=== PATIENT | male | born 1965 | race Caucasian/White ===

== ENCOUNTER → 2020-11-20 07:34 | Outpatient (REF) | payer OTHER, SELFPAY ==
--- NOTE | 2020-11-20 07:43 | CA_ITS ---
Transthoracic Echocardiogram Patient (Last, First, Middle): Matt Honeycutt J Gender: Male Date of : 1965 Age: 55 Procedure Date: 11/20/2020 Procedure Type: Transthoracic Echocardiogram Location: OP Height: 177.8 cm Weight: 88.45 kg BSA: 2.06 m2 Heart Rate: bpm BP: 96 / 70 mmHg Window Tinter: Nakia Referring MD: Domenico Gaspar [facility] Symptoms: I42.6 - Alcoholic cardiomyopathy Study Quality: Fair ECG Rhythm: Sinus Conclusions: - The left ventricular systolic function is severely decreased. The visually estimated ejection fraction is between 10-15%. - No obvious valvular pathology seen on this study. Findings Procedure Information Contrast agent, definity, is being given per protocol without apparent complications. The patient receives contrast. Left Ventricle Normal left ventricular cavity size. There is mildly increased left ventricular wall thickness. The left ventricular systolic function is severely decreased. The visually estimated ejection fraction is between 10 15%. There is severe global hypokinesis. E/E prime ratio is <8, consistent with normal filling pressures. Evidence suggests grade I (mild) diastolic dysfunction. Right Ventricle Normal right ventricular cavity size. There is low normal right ventricular systolic function. Atria Both atria are normal in size. Aortic Valve There is mild calcification of the aortic valve. There is no aortic valve stenosis. There is no aortic valve regurgitation. Mitral Valve There is mild mitral annular calcification. There is trace mitral valve regurgitation. There is no mitral valve stenosis. Pulmonic Valve The pulmonic valve was not well visualized. Tricuspid Valve Normal tricuspid valve structure. There is trace tricuspid valve regurgitation. The pulmonary artery systolic pressure is normal. Great Vessels The aortic annulus, sinuses of valsalva, and asc aorta are normal in size. Venous The inferior vena cava is normal in size and collapses greater than 50% with inspiration. Pericardium/Pleural There is no evidence of pericardial effusion. Prior Study Comparison No significant change compared to prior study dated: 07/26/2016. Recommendations, Care & Conclusions No obvious valvular pathology seen on this study. Measurements M-Mode Liner Measurements Normals - Women/Men AOV Cusps: 2.20 1.5-2.6 cm/m2 2D Linear Measurements IVSd: 1.17 0.6-0.9/0.6-1.0 cm LVIDd: 5.97 3.9-5.3/4.2-5.9 cm LVIDd Index: 2.90 2.4-3.2/2.2-3.1 cm/m2 LVIDs: 4.38 2.0-3.6 cm LVPWd: 1.08 0.7-1.1 cm Ao Root: 3.40 2.1-3.5 cm LA Diam: 3.70 2.7-3.8/3.0-4.0 cm LAIDs Index: 1.80 1.5-2.3 cm/m2 LV Mass: 356.34 67-162/88-224 g LV Mass Index: 172.98 43-95/49-115 g/m2 LVOT Diam: 2.30 3.0+(-)1.3 cm 2D Systolic Function EF 4C: 27.90 >55% EF 2C: 39.00 >55% Mitral Valve MV Pk E: 0.53 MV PK A: 0.78 MV Decel Time: 216.00 E/A: 0.70 E'Lateral: 9.03 E'Medial: 4.68 E/E' Med: 11.20 E/E' Lat: 5.80 PHT: 63.00 MVA PHT: 3.49 Decel Cass: 2.43 Aortic Valve AoV Pk Kevin: 1.28 AoV Mn Kevin: 0.98 AoV VTI: 0.24 AoV Pk Grad: 7.00 Aov Mn Grad: 4.00 JOSE F Cont.VTI: 2.62 LVOT LVOT Pk Kevin: 0.88 LVOT Mn Kevin: 0.67 LVOT VTI: 0.15 LVOT Pk Grad: 3.00 LVOT Mn Grad: 2.00 LVOT Diam: 2.30 LVOT Area: 4.15 Diastolic Function MV Pk E: 0.53 MV Pk A: 0.78 E/A: 0.70 E'Medial: 4.68 E/E' Med: 11.20 E' Laterial: 9.03 E/E' Lat: 5.80 Tricuspid Valve TR Pk Kevin: 1.83 TR Pk Grad: 13.00 RA Press: 3.00 RVSP: 16.00 Great Vessels Aorta Ao Root-2D: 3.40 2.0-3.7 cm Ao Asc: 3.20 2.1-3.4 cm Ao Arch: 2.90 Pulmonary Valve PV Pk Kevin: 1.25 Peak PV Grad: 6.00 Updated in Other Vendor System with Status of Final Elliot Veliz MD electronically signed on 11/21/2020 2:44:19 PM with status of Final
== END ==
LOC: HO.CARD 07:34
PROVIDERS: PCP Nurse Practitioner Family; Visit Provider Nurse Practitioner Family
DX: I42.6 Alcoholic cardiomyopathy (principal)
CPT/HCPCS: 93306; Q9957

== ENCOUNTER → 2020-12-03 11:56 | Outpatient (BNVA) | payer OTHER, SELFPAY | PROVIDERS: PCP Nurse Practitioner Family; Referring Provider Nurse Practitioner Family; Visit Provider Physician Assistant | DX: I42.9 Cardiomyopathy, unspecified (principal); I44.7 Left bundle-branch block, unspecified; G47.33 Obstructive sleep apnea (adult) (pediatric); F10.10 Alcohol abuse, uncomplicated; Z12.11 Encounter for screening for malignant neoplasm of colon; Z78.9 Other specified health status | CPT/HCPCS: 99202 ==

== ENCOUNTER → 2021-02-03 09:55 | Outpatient (BNVA) | payer OTHER, SELFPAY | PROVIDERS: PCP Nurse Practitioner Family; Referring Provider Nurse Practitioner Family; Visit Provider Physician Assistant ==

== ENCOUNTER 2022-08-09 14:27 | Outpatient (REF) | payer OTHER, SELFPAY ==
--- NOTE | ~2022-08-09 | XR_ITS ---
EXAMINATION: XR CHEST CLINICAL INFORMATION: Alcoholic cardiomyopathy COMPARISON: 01/08/2020 TECHNIQUE: 2 views of the chest were obtained. FINDINGS: The lungs are well expanded. There is no focal consolidation, edema, or effusion. No pneumothorax. The cardiomediastinal silhouette is prominently enlarged. This appears increased from prior. No acute osseous abnormality. XR/XR chest 2V IMPRESSION: No acute pulmonary finding. Prominent cardiac silhouette which appears increased from prior. This could be secondary to cardiomegaly or pericardial effusion.
[2022-08-09 16:32] LABS: Hematocrit 39.3 % (42.0-52.0); Mean Corpuscular HGB Conc 33.1 g/dl (31.0-36.0); Mean Corpuscular Hemoglobin 32.5 pg (27.0-33.0); Mean Corpuscular Volume 98.3 fL (80.0-98.0); Platelet Count 324 X10*3/uL (160-400); Red Cell Distribution Width 12.7 % (11.0-16.0); White Blood Count 9.9 X10*3/uL (4.8-10.8)
[2022-08-09 17:31] LABS: B Type Natriuretic Peptide 110 pg/mL (<100)
[2022-08-09 17:36] LABS: Alanine Aminotransferase 13 U/L (0-40); Albumin Level 3.3 g/dL (3.5-5.0); Alkaline Phosphatase 94 U/L (39-117); Anion Gap 12 (12-20); Aspartate Amino Transferase 18 U/L (5-37); Bilirubin Direct < 0.2 mg/dL (0.0-0.5); Bilirubin Total 0.3 mg/dL (0.0-1.0); Blood Urea Nitrogen 17 mg/dL (9-16); Carbon Dioxide 32 mmol/L (22-29); Chloride 102 mmol/L (96-108); Cholesterol 130 mg/dL; Estimated Glomerular Filt Rate > 60; Glucose Random 90 mg/dL (60-115); HDL Cholesterol 38 mg/dL; LDL Cholesterol Calculated 79 mg/dl; Potassium 4.7 mmol/L (3.3-5.1); Sodium 141 mmol/L (135-145); Total Protein 6.8 g/dL (6.5-8.0); Triglycerides 67 mg/dL
[2022-08-09 17:46] LABS: Thyroid Stimulating Hormone 2.55 uIU/mL (0.32-4.0)
== END 2022-08-09 14:28 | disposition home or self-care (01) ==
LOC: HO.HMGCX 14:27
PROVIDERS: PCP Nurse Practitioner Family; Visit Provider Internal Medicine
DX: I42.6 Alcoholic cardiomyopathy (principal)
CPT/HCPCS: 36415; 71046; 80048; 80061; 80076; 83880; 84443; 85027

== ENCOUNTER 2022-09-01 08:49 | Outpatient (REF) | payer OTHER, SELFPAY ==
--- NOTE | ~2022-09-01 | US_ITS ---
EXAMINATION: US VENOUS ULTRASOUND WITH DOPPLER LOWER EXTREMITY, BILATERAL CLINICAL INFORMATION: Swelling mass lump lower limb COMPARISON: None available. TECHNIQUE: Ultrasound of the deep veins is performed from the hip to the calf with compression sonography and color and pulse Doppler assessment. Spectral analysis with color-flow imaging is performed. FINDINGS: RIGHT: There is normal venous compression and respiratory variation and augmented flow. The visualized common femoral vein, superficial femoral vein, profunda femoral vein, popliteal vein, and the trifurcation region shows no evidence of deep venous thrombosis. There is no significant popliteal fossa cyst. LEFT: There is normal venous compression and respiratory variation and augmented flow. The visualized common femoral vein, superficial femoral vein, profunda femoral vein, popliteal vein, and the trifurcation region shows no evidence of deep venous thrombosis. There is no significant popliteal fossa cyst. If the patient's symptoms persist, followup ultrasound in 5 days 7 days might be of value to exclude proximal propagation from a non-visualized calf vein. US/US venous duplex LE BI IMPRESSION: No DVT demonstrated in the bilateral lower extremity.
[2022-09-01 11:14] LABS: MANUAL DIFF FLAG NO
[2022-09-01 11:19] LABS: Basophils Absolute Auto 0.1 X10*3/uL (0.0-0.2); Basophils Percent Auto 0.5 % (0-2); Eosinophils Absolute Auto 0.1 X10*3/uL (0.0-0.4); Eosinophils Percent Auto 1.2 % (0-4); Hematocrit 41.1 % (42.0-52.0); Hemoglobin 13.9 g/dl (14.0-18.0); Imm Gran Abs Auto 0.04 X10*3/uL (0.00-0.03); Imm Gran Pct Auto 0.4 % (0.0-0.4); Lymphocytes Absolute Auto 2.9 X10*3/uL (1.2-4.9); Mean Corpuscular HGB Conc 33.8 g/dl (31.0-36.0); Mean Corpuscular Hemoglobin 31.8 pg (27.0-33.0); Mean Corpuscular Volume 94.1 fL (80.0-98.0); Mean Platelet Volume 9.9 fL (9.4-12.4); Monocytes Absolute Auto 0.7 X10*3/uL (0.1-1.2); Monocytes Percent Auto 6.7 % (2-11); Neutrophils Absolute Auto 5.9 x10*3/uL (2.0-8.3); Neutrophils Percent Auto 61.2 % (45-73); Platelet Count 188 X10*3/uL (160-400); Red Blood Count 4.37 X10*6/uL (4.60-5.80); White Blood Count 9.6 X10*3/uL (4.8-10.8)
[2022-09-01 11:30] LABS: Appearance Urine Clear; Color Urine Yellow; Glucose Urine UA Negative (Negative); Leukocyte Esterase Urine Negative (Negative); Nitrite Urine Negative (Negative); PH 5.5 (5.0-9.0); Urine Blood Negative (Negative); Urine Ketones Trace mg/dL (Negative); Urine Protein Negative (Neg-Trace)
[2022-09-01 11:37] LABS: D Dimer High Sensitivity 247 NG/ML
[2022-09-01 11:55] LABS: B Type Natriuretic Peptide 34 pg/mL (<100)
[2022-09-01 12:20] LABS: Alanine Aminotransferase 12 U/L (0-40); Albumin Level 4.1 g/dL (3.5-5.0); Alkaline Phosphatase 102 U/L (39-117); Anion Gap 18 (12-20); Aspartate Amino Transferase 22 U/L (5-37); Bilirubin Total 0.5 mg/dL (0.0-1.0); Blood Urea Nitrogen 35 mg/dL (9-16); Carbon Dioxide 19 mmol/L (22-29); Chloride 109 mmol/L (96-108); Estimated Glomerular Filt Rate > 60; Glucose Random 92 mg/dL (60-115); Potassium 4.8 mmol/L (3.3-5.1); Sodium 141 mmol/L (135-145); Total Protein 7.4 g/dL (6.5-8.0)
[2022-09-01 12:27] LABS: Prostate Specific Antigen Scr 2.65 ng/mL (<0.05-4.0); TSH reflex Free T4 0.95 uIU/mL (0.32-4.0)
== END 2022-09-01 08:50 | disposition home or self-care (01) ==
LOC: HO.HMGCLDS 08:49
PROVIDERS: PCP Nurse Practitioner Family; Visit Provider Nurse Practitioner Family
DX: Z12.5 Encounter for screening for malignant neoplasm of prostate (principal); I10 Essential (primary) hypertension; R22.43 Localized swelling, mass and lump, lower limb, bilateral; M79.661 Pain in right lower leg; M79.662 Pain in left lower leg
CPT/HCPCS: 36415; 80053; 81003; 83880; 84153; 84443; 85025; 85379; 93970

== ENCOUNTER 2022-09-02 11:50 | Outpatient (REF) | payer OTHER, SELFPAY ==
--- NOTE | ~2022-09-02 | CT_ITS ---
EXAMINATION: CT ANGIOGRAM OF THE CHEST WITH AND WITHOUT CONTRAST (CT PULMONARY ANGIOGRAM FOR PE) CLINICAL INFORMATION: Other specified abnormal findings of blood chemistry COMPARISON: Chest radiographs dated 08/09/2022. TECHNIQUE: Prior to contrast administration, noncontrast localization images were obtained. Subsequently, multidetector volumetric imaging was performed from the thoracic inlet to below the diaphragms following the administration of 80 mL Omnipaque 350 intravenous contrast. No contrast reaction reported Sagittal, coronal, and MIP oblique sagittal reformatted images were obtained on the CT workstation, uploaded to PACS, and reviewed. This CT examination was performed using dose optimization techniques as appropriate, variously including the following: *Automated exposure control *Adjustment of mA and/or kV according to patient size (this includes techniques or standardized protocols for targeted exams where dose is matched to indication/reason for exam; i.e. extremities or head) *Use of iterative reconstruction technique Total exam dose-length product 168 mGy-cm FINDINGS: QUALITY OF STUDY/CONTRAST BOLUS: Satisfactory. PULMONARY ARTERIES: No pulmonary emboli. THORACIC AORTA: No aneurysm. LUNGS/PLEURA/AIRWAYS: Mild linear atelectasis/scarring is seen in the lower lobes bilaterally. No suspicious pulmonary nodules. No pleural effusions. The airways are patent. MEDIASTINUM: Normal heart size. No pericardial effusion. No hilar or mediastinal lymphadenopathy. No evidence of septal bowing or right heart strain. CORONARY ARTERY CALCIFICATION: None visualized on this study. CHEST WALL/AXILLA: No axillary or internal mammary lymphadenopathy. Mild bilateral gynecomastia. OSSEOUS STRUCTURES: Mild thoracic dextro scoliosis is seen with mild multilevel degenerative changes. No suspicious abnormality. UPPER ABDOMEN: Diffuse decreased hepatic attenuation. No reflux of contrast into the hepatic veins to suggest elevated right heart pressures. CT/CT angio chest PE protocol IMPRESSION: 1. No evidence for pulmonary embolism. 2. No acute cardiopulmonary process. 3. Mild bilateral gynecomastia. 4. Hepatic steatosis. VTE: Negative.
[2022-09-02] MEDS: iohexoL 350 MG/ML 100 ML INFUS..BTL 65 ML IV (12:29)
== END 2022-09-02 11:51 | disposition home or self-care (01) ==
LOC: HO.CT 11:50
PROVIDERS: PCP Nurse Practitioner Family; Visit Provider Nurse Practitioner Family
DX: R79.89 Other specified abnormal findings of blood chemistry (principal)
CPT/HCPCS: 71275; Q9967

== ENCOUNTER → 2022-09-09 14:46 | Outpatient (REF) | payer OTHER, SELFPAY ==
--- NOTE | 2022-09-09 14:49 | CA_ITS ---
Transthoracic Echocardiogram Patient (Last, First, Middle): Matt Honeycutt J Gender: Male Date of : 1965 Age: 57 Procedure Date: 09/09/2022 Procedure Type: Transthoracic Echocardiogram Location: OP Height: 177.8 cm Weight: 111.13 kg BSA: 2.28 m2 Heart Rate: 65 bpm BP: 118 / 74 mmHg Executive Services Administrator: SB Referring MD: Domenico Gaspar [facility] Symptoms: R22.43 - Localized swelling, mass and lump, lower limb, bilateral Study Quality: Fair ECG Rhythm: Sinus Conclusions: - Normal left ventricular cavity size. There is mildly increased left ventricular wall thickness. The left ventricular systolic function is borderline reduced. The visually estimated ejection fraction is between 45-50%. - Mildly increased right ventricular cavity size. There is mildly decreased right ventricular systolic function. Findings Procedure Information Contrast agent, definity, is being given per protocol without apparent complications. The quality of the study was technically difficult. The study quality is limited by patients body habitus. Left Ventricle Normal left ventricular cavity size. There is mildly increased left ventricular wall thickness. The left ventricular systolic function is borderline reduced. The visually estimated ejection fraction is between 45 50%. There is no evidence of regional wall motion abnormalities. There is paradoxical septal motion consistent with a left bundle branch block. Diastolic function is indeterminate on the basis of available data. Right Ventricle Mildly increased right ventricular cavity size. There is mildly decreased right ventricular systolic function. Atria The left atrium is normal in size. Aortic Valve The aortic valve structure and function is likely normal. There is no aortic valve stenosis. There is no aortic valve regurgitation. Mitral Valve Normal mitral valve structure and function. There is no mitral valve regurgitation. There is no mitral valve stenosis. Pulmonic Valve The pulmonic valve is likely normal. Tricuspid Valve Normal tricuspid valve structure and function. Tricuspid regurgitation envelope is inadequate for calculation of right ventricular systolic pressure. Normal right atrial pressure. Great Vessels All visible segments of the aorta are normal in size. The visualized portions of the pulmonary artery and branches are normal. Venous The inferior vena cava is normal in size and collapses greater than 50% with inspiration. Pericardium/Pleural There is no evidence of pericardial effusion. Prior Study Comparison Changes noted compared to prior study dated: 11/20/2020. EF 45 to 50%, mild RV dysfunction. Measurements 2D Linear Measurements IVSd: 1.43 0.6-0.9/0.6-1.0 cm LVIDd: 5.24 3.9-5.3/4.2-5.9 cm LVIDd Index: 2.30 2.4-3.2/2.2-3.1 cm/m2 LVPWd: 1.14 0.7-1.1 cm LA Diam: 4.10 2.7-3.8/3.0-4.0 cm LAIDs Index: 1.80 1.5-2.3 cm/m2 LV Mass: 345.80 67-162/88-224 g LV Mass Index: 151.67 43-95/49-115 g/m2 LVOT Diam: 2.20 3.0+(-)1.3 cm 2D Systolic Function EF 4C: 33.40 >55% EF 2C: 50.60 >55% EF BiP: 41.40 >55% Mitral Valve MV Pk E: 0.61 MV PK A: 0.54 MV Decel Time: 187.00 E/A: 1.10 E'Lateral: 8.35 E'Medial: 5.51 E/E' Med: 11.00 E/E' Lat: 7.30 PHT: 55.00 MVA PHT: 4.00 Decel [place]: 3.26 Aortic Valve AoV Pk Kevin: 1.43 AoV Pk Grad: 8.00 JOSE F: 2.91 LVOT LVOT Pk Kevin: 1.01 LVOT Mn Kevin: 0.67 LVOT VTI: 0.20 LVOT Pk Grad: 4.00 LVOT Mn Grad: 3.00 LVOT Diam: 2.20 LVOT Area: 3.80 Diastolic Function MV Pk E: 0.61 MV Pk A: 0.54 E/A: 1.10 E'Medial: 5.51 E/E' Med: 11.00 E' Laterial: 8.35 E/E' Lat: 7.30 Right Ventricle TVS' Kevin: 9.95 Tricuspid Valve RA Press: 3.00 Great Vessels Aorta Ao Asc: 3.20 2.1-3.4 cm Ao Arch: 2.80 Ao Desc: 2.70 Pulmonary Valve PV Pk Kevin: 1.00 Peak PV Grad: 4.00 Updated in Other Vendor System with Status of Final Walter Chu MD electronically signed on 09/12/2022 10:50:25 PM with status of Final
== END ==
LOC: HO.CARD 14:46
PROVIDERS: Referring Provider Internal Medicine; Visit Provider Nurse Practitioner Family
DX: R22.43 Localized swelling, mass and lump, lower limb, bilateral (principal)
CPT/HCPCS: 93306; Q9957

== ENCOUNTER → 2022-10-26 12:27 | Outpatient (BNVA) | payer OTHER, SELFPAY | PROVIDERS: PCP Nurse Practitioner Family; Referring Provider Nurse Practitioner Family; Visit Provider Internal Medicine | DX: I42.9 Cardiomyopathy, unspecified (principal); I44.7 Left bundle-branch block, unspecified; F10.10 Alcohol abuse, uncomplicated | CPT/HCPCS: 99212 ==

== ENCOUNTER 2022-12-19 09:09 | Outpatient (REF) | payer OTHER, SELFPAY ==
[2022-12-19 11:26] LABS: MANUAL DIFF FLAG NO
[2022-12-19 12:07] LABS: Basophils Percent Auto 0.4 % (0-2); Eosinophils Absolute Auto 0.2 X10*3/uL (0.0-0.4); Eosinophils Percent Auto 2.2 % (0-4); Hematocrit 42.2 % (42.0-52.0); Hemoglobin 14.5 g/dl (14.0-18.0); Imm Gran Abs Auto 0.05 X10*3/uL (0.00-0.03); Imm Gran Pct Auto 0.5 % (0.0-0.4); Immature Retic Fraction 14.9 % (2.3-13.4); Lymphocytes Absolute Auto 3.4 X10*3/uL (1.2-4.9); Lymphocytes Percent Auto 32.4 % (20-40); Mean Corpuscular HGB Conc 34.4 g/dl (31.0-36.0); Mean Corpuscular Hemoglobin 32.3 pg (27.0-33.0); Mean Platelet Volume 9.8 fL (9.4-12.4); Monocytes Absolute Auto 0.6 X10*3/uL (0.1-1.2); Monocytes Percent Auto 6.2 % (2-11); Neutrophils Percent Auto 58.3 % (45-73); Platelet Count 163 X10*3/uL (160-400); Red Blood Count 4.49 X10*6/uL (4.60-5.80); Red Cell Distribution Width 11.9 % (11.0-16.0); Retic HGB Equivalent 41.2 pg (30.0-35.0); Reticulocyte Percent 2.1 % (0.5-1.8); Reticulocytes Absolute 0.096 X10*6/uL (0.026-0.095); White Blood Count 10.3 X10*3/uL (4.8-10.8)
[2022-12-19 12:49] LABS: B Type Natriuretic Peptide 26 pg/mL (<100)
[2022-12-19 13:10] LABS: Alanine Aminotransferase 40 U/L (0-40); Alkaline Phosphatase 117 U/L (39-117); Anion Gap 14 (12-20); Aspartate Amino Transferase 45 U/L (5-37); Bilirubin Total 0.5 mg/dL (0.0-1.0); Blood Urea Nitrogen 23 mg/dL (9-16); Calcium 9.3 mg/dL (8.4-10.2); Carbon Dioxide 27 mmol/L (22-29); Chloride 106 mmol/L (96-108); Estimated Glomerular Filt Rate > 60; Glucose Random 100 mg/dL (60-115); Iron 72 mcg/dL (45-160); Percent Iron Saturation 25 % (15-50); Potassium 3.5 mmol/L (3.3-5.1); Sodium 143 mmol/L (135-145); Total Iron Binding Capacity 283 mcg/dL (228-428); Total Protein 7.2 g/dL (6.5-8.0); Unsaturated Iron Binding 211 ug/dL
[2022-12-19 13:11] LABS: Ferritin 296 ng/mL (20-250)
[2022-12-19 13:21] LABS: Folate 16.1 ng/mL (> or = 4.0); Vitamin B12 458 pg/mL (200-900)
== END 2022-12-19 09:10 | disposition home or self-care (01) ==
LOC: HO.HMGCLDS 09:09
PROVIDERS: Absent Provider Internal Medicine; PCP Nurse Practitioner Family; Visit Provider Nurse Practitioner Family
DX: F10.10 Alcohol abuse, uncomplicated (principal); I42.9 Cardiomyopathy, unspecified; R22.43 Localized swelling, mass and lump, lower limb, bilateral
CPT/HCPCS: 36415; 80053; 82607; 82728; 82746; 83540; 83880; 85025; 85045

== ENCOUNTER 2023-02-17 15:05 | Outpatient (AMB) | payer OTHER, SELFPAY ==
--- NOTE | 2023-02-17 15:36 | AM.OFFWIN_ITS ---
Intake Vital Signs 02/17/23 15:47 Height 5 ft 10 in Weight 239 lb BMI 34.3 BP 138/78 Blood Pressure Location Rt brachial Position Sitting Pulse 80 Pulse Source Pulse Oximeter Temp 97.9 F Temp Source Temporal Artery Scan Pulse Oximetry (%) 96 Intake Visit Reasons: EST/feet and ankle sweeling Intake Note: pt is here for c/o swelling of ankle and feet Patient Tobacco Use Status: Never used Tobacco Allergies No Known Allergies Allergy (Unknown, Verified 02/17/23 15:47) Do you need a note to return to daycare/school/sports/work: Yes HPI HPI Comments History of Present Illness Details This is a 57-year-old male who presents to the office today for sick visit. Patient complaining of bilateral lower extremity edema x3 days. Patient denies any new medications, diet changes, or lifestyle changes. He states he was in his usual state of health until he started to develop lower extremity edema bilaterally about 3 days ago. Patient is otherwise feeling well without chest pain, shortness of breath, abdominal pain, nausea/vomiting/diarrhea, fever/chills, abdominal distention, orthopnea/paroxysmal nocturnal dyspnea, or weight gain. Patient states this has happened to him in the past. He was put on oral furosemide, which seemed to help. Patient has a cardiac workup scheduled for April 12. He denies any recent travel, recent surgeries, recent immobilization, or trauma/injury to the area. [facility] Medical History (Updated 11/14/22 @ 18:04 by PILI Bai) Gynecomastia Insomnia VIC (obstructive sleep apnea) Alcoholic cardiomyopathy Hypertension Hyperlipidemia Surgical History No pertinent past surgical history Family History Mother No problems noted. Social History Household Members Other:: Lives with father Housing: House Alcohol intake: current Alcohol intake frequency: does not drink Patient Tobacco Use Status: Never used Tobacco e-Cigarette/Vaping Use: Never Used Current occupational status: unemployed Cognitive needs: No Hearing needs: No Vision needs: No Review of Systems Const All systems reviewed & are unremarkable except as noted in HPI and below Reports no additional complaints Eyes Reports no additional complaints ENT Reports no additional complaints Card Reports no additional complaints Resp Reports no additional complaints GI Reports no additional complaints Reports no additional complaints Musc Reports no additional complaints Skin/Breast Reports system reviewed and no additional complaints, except as documented Neuro Reports no additional complaints Psych Reports no additional complaints Endo Reports no additional complaints Arturo/Lymph Reports no additional complaints Aller/Immun Reports no additional complaints Physical Exam Vital Signs: Last Vital Signs Temp 97.9 F 02/17/23 15:47 Pulse 80 02/17/23 15:47 BP 138/78 02/17/23 15:47 Pulse Ox 96 02/17/23 15:47 BMI result Body Mass Index 34.3 Const General: cooperative, healthy appearing, no acute distress and well developed Orientation/consciousness: patient oriented x3 HEENT Head: Yes normal to inspection Ears: hearing grossly normal bilaterally General nose exam: Normal external nose present Face and sinus: Yes normal facial exam Mouth: Normal oral and palatal mucosa present Eyes General: appearance normal, both eyes and all related structures Pupils: Equal, round and reactive pupils present EOM: EOMs intact bilaterally Resp Effort & Inspection: normal respiratory effort and no respiratory distress Auscultation: clear to auscultation bilaterally Cardio Jugular venous distension: no JVD Rate: regular rate Rhythm: regular rhythm Heart sounds: no gallops, no murmurs and no rubs Peripheral pulses: Peripheral pulses 2+ throughout GI Inspection: No distended Palpation (GI): Soft to palpation and nontender Auscultation: normal bowel sounds Skin General skin exam: no rashes or lesions noted Neuro General: patient oriented x3 Cranial nerves: Yes CN's II-XII intact bilaterally and Yes Equal, round and reactive pupils present Gait exam (Neuro): Normal gait present Motor exam (neuro): 5/5 motor strength present throughout Extrem Other: Pitting edema of bilateral lower extremities, left greater than right. General: Yes normal to inspection and Yes full ROM Right lower extremity: edema Left lower extremity: edema Psych Appearance: grossly normal Mental Status: mental status grossly normal Assessment & Plan Assessment & Plan (1) Bilateral lower extremity edema: Code(s): R60.0 - Localized edema Plan: This is a 57-year-old male who presents to the office today complaining of bilateral lower extremity edema x3 days. On physical examination, he has bilateral lower extremity edema (left greater than right) but his physical exam is otherwise benign without JVD, crackles, or abdominal distention. Differential diagnosis includes peripheral/dependent edema versus heart failure versus liver disease versus kidney disease versus venous insufficiency versus less likely DVT given no recent travel/surgery/immobilization and no history of blood clots. My recommendation was to obtain labs including CBC, CMP, and BNP as well as an ultrasound of bilateral lower extremity duplex ultrasound to rule out DVT. Unfortunately, labs and ultrasound are no longer available at the walk-in clinic at this time. I encouraged the patient to go to the emergency room to rule out a deep vein thrombosis as well as obtain labs. Patient declines at this time. Patient was educated on the risks of DVT including but not limited to pulmonary embolism, debility, and . The patient is alert and oriented x 4 and in my opinion he has the competence to make his own medical decisions. Patient agrees to follow-up here in 3 days to obtain labs and ultrasound, which have been ordered. In the meantime, I have sent patient home on p.o. furosemide 20 mg daily x5 days. Patient was encouraged to proceed directly to the emergency room if he were to develop worsening swelling, color changes of his extremities, or shortness of breath. Patient has a cardiology workup scheduled for April 12 and I strongly encouraged him to keep this appointment. Patient verbalizes understanding and he is in agreement with the plan. Patient is comfortable with being discharged home at this time. Orders: Orders Complete Blood Count Auto Diff Today M79.89 - Other specified soft tissue disorders US venous duplex LE BI Today M79.89 - Other specified soft tissue disorders Comprehensive Met. Panel Today M79.89 - Other specified soft tissue disorders B Type Natriuretic Peptide Today M79.89 - Other specified soft tissue disorders Medications: New furosemide 20 mg PO DAILY 5 tabs 0RF Coding Level of Care Code Est Pt Level 3 (45896) Diagnoses Bilateral lower extremity edema R60.0
[2023-02-17 15:47] VITALS: BP 138/78; PULSE 80; TEMP 36.6; O2SAT 96; BMI 34.3
== END 2023-02-17 16:18 | disposition home or self-care (01) ==
PROVIDERS: PCP Nurse Practitioner Family; Visit Provider Physician Assistant Medical
DX: R60.0 Localized edema (principal)
CPT/HCPCS: 99213

== ENCOUNTER 2023-02-20 09:35 | Outpatient (REF) | payer OTHER, SELFPAY ==
[2023-02-20 11:10] LABS: MANUAL DIFF FLAG NO
[2023-02-20 11:29] LABS: Basophils Percent Auto 0.6 % (0-2); Eosinophils Absolute Auto 0.2 X10*3/uL (0.0-0.4); Eosinophils Percent Auto 2.2 % (0-4); Hematocrit 39.7 % (42.0-52.0); Hemoglobin 13.4 g/dl (14.0-18.0); Imm Gran Abs Auto 0.02 X10*3/uL (0.00-0.03); Imm Gran Pct Auto 0.3 % (0.0-0.4); Lymphocytes Percent Auto 27.3 % (20-40); Mean Corpuscular HGB Conc 33.8 g/dl (31.0-36.0); Mean Corpuscular Hemoglobin 33.4 pg (27.0-33.0); Mean Platelet Volume 10.1 fL (9.4-12.4); Monocytes Absolute Auto 0.7 X10*3/uL (0.1-1.2); Monocytes Percent Auto 9.3 % (2-11); Neutrophils Absolute Auto 4.3 x10*3/uL (2.0-8.3); Neutrophils Percent Auto 60.3 % (45-73); Platelet Count 173 X10*3/uL (160-400); Red Blood Count 4.01 X10*6/uL (4.60-5.80); Red Cell Distribution Width 13.9 % (11.0-16.0); White Blood Count 7.2 X10*3/uL (4.8-10.8)
[2023-02-20 11:48] LABS: B Type Natriuretic Peptide 376 pg/mL (<100)
[2023-02-20 12:54] LABS: Alanine Aminotransferase 18 U/L (0-40); Albumin Level 3.8 g/dL (3.5-5.0); Alkaline Phosphatase 86 U/L (39-117); Anion Gap 11 (12-20); Aspartate Amino Transferase 26 U/L (5-37); Bilirubin Total 0.4 mg/dL (0.0-1.0); Blood Urea Nitrogen 15 mg/dL (9-16); Calcium 8.8 mg/dL (8.4-10.2); Carbon Dioxide 25 mmol/L (22-29); Chloride 110 mmol/L (96-108); Estimated Glomerular Filt Rate > 60; Glucose Random 98 mg/dL (60-115); Potassium 3.8 mmol/L (3.3-5.1); Sodium 142 mmol/L (135-145); Total Protein 6.6 g/dL (6.5-8.0)
== END 2023-02-20 09:36 | disposition home or self-care (01) ==
LOC: HO.HMGCLDS 09:35
PROVIDERS: PCP Nurse Practitioner Family; Visit Provider Physician Assistant Medical
DX: M79.89 Other specified soft tissue disorders (principal)
CPT/HCPCS: 36415; 80053; 83880; 85025

== ENCOUNTER 2023-02-20 10:54 | Outpatient (REF) | payer OTHER, SELFPAY ==
--- NOTE | ~2023-02-20 | US_ITS ---
EXAMINATION: US VENOUS ULTRASOUND WITH DOPPLER LOWER EXTREMITY, BILATERAL CLINICAL INFORMATION: Bilateral lower extremity swelling. COMPARISON: Venous ultrasound 09/01/2022. TECHNIQUE: Ultrasound of the deep veins is performed from the hip to the calf with compression sonography and color and pulse Doppler assessment. Spectral analysis with color-flow imaging is performed. FINDINGS: RIGHT: There is normal venous compression and respiratory variation and augmented flow. The visualized common femoral vein, superficial femoral vein, profunda femoral vein, popliteal vein, and the trifurcation region shows no evidence of deep venous thrombosis. There is no significant popliteal fossa cyst. LEFT: There is normal venous compression and respiratory variation and augmented flow. The visualized common femoral vein, superficial femoral vein, profunda femoral vein, popliteal vein, and the trifurcation region shows no evidence of deep venous thrombosis. There is no significant popliteal fossa cyst. US/US venous duplex LE BI IMPRESSION: No DVT demonstrated in the bilateral lower extremities.
== END 2023-02-20 10:55 | disposition home or self-care (01) ==
LOC: HO.HMGCX 10:54
PROVIDERS: PCP Nurse Practitioner Family; Visit Provider Physician Assistant Medical
DX: R60.0 Localized edema (principal)
CPT/HCPCS: 93970

== ENCOUNTER 2023-04-03 06:40 | Outpatient (REF) | payer OTHER, SELFPAY ==
[2023-04-03 12:06] LABS: MANUAL DIFF FLAG NO
[2023-04-03 12:11] LABS: Basophils Absolute Auto 0.1 X10*3/uL (0.0-0.2); Basophils Percent Auto 0.8 % (0-2); Eosinophils Absolute Auto 0.1 X10*3/uL (0.0-0.4); Eosinophils Percent Auto 1.5 % (0-4); Hematocrit 40.8 % (42.0-52.0); Hemoglobin 13.5 g/dl (14.0-18.0); Imm Gran Abs Auto 0.03 X10*3/uL (0.00-0.03); Imm Gran Pct Auto 0.5 % (0.0-0.4); Lymphocytes Absolute Auto 2.5 X10*3/uL (1.2-4.9); Lymphocytes Percent Auto 38.5 % (20-40); Mean Corpuscular HGB Conc 33.1 g/dl (31.0-36.0); Mean Corpuscular Hemoglobin 33.1 pg (27.0-33.0); Mean Platelet Volume 9.8 fL (9.4-12.4); Monocytes Absolute Auto 0.8 X10*3/uL (0.1-1.2); Monocytes Percent Auto 12.9 % (2-11); Neutrophils Percent Auto 45.8 % (45-73); Platelet Count 217 X10*3/uL (160-400); Red Blood Count 4.08 X10*6/uL (4.60-5.80); Red Cell Distribution Width 12.1 % (11.0-16.0); White Blood Count 6.5 X10*3/uL (4.8-10.8)
[2023-04-03 12:57] LABS: Alanine Aminotransferase 67 U/L (0-40); Alkaline Phosphatase 84 U/L (39-117); Anion Gap 14 (12-20); Aspartate Amino Transferase 53 U/L (5-37); Bilirubin Total 0.3 mg/dL (0.0-1.0); Blood Urea Nitrogen 14 mg/dL (9-16); Calcium 8.9 mg/dL (8.4-10.2); Carbon Dioxide 23 mmol/L (22-29); Chloride 109 mmol/L (96-108); Cholesterol 133 mg/dL (<200); Estimated Glomerular Filt Rate > 60; Glucose Fasting 95 mg/dL (60-99); HDL Cholesterol 51 mg/dL (>40); LDL Cholesterol Calculated 75 mg/dL (<100); Potassium 3.5 mmol/L (3.3-5.1); Sodium 142 mmol/L (135-145); TSH reflex Free T4 1.96 uIU/mL (0.32-4.0); Total Protein 7.2 g/dL (6.5-8.0); Triglycerides 39 mg/dL (<150)
== END 2023-04-03 06:41 | disposition home or self-care (01) ==
LOC: HO.HMGCLDS 06:40
PROVIDERS: PCP Nurse Practitioner Family; Visit Provider Internal Medicine
DX: I10 Essential (primary) hypertension (principal)
CPT/HCPCS: 36415; 80053; 80061; 84443; 85025

== ENCOUNTER 2023-05-12 09:13 | Outpatient (AMB) | payer OTHER, SELFPAY ==
[2023-05-12 10:33] VITALS: BP 130/70; PULSE 66; TEMP 36.4; O2SAT 97; BMI 35.6
--- NOTE | 2023-05-12 10:33 | AM.OFFWIN_ITS ---
Intake Vital Signs 05/12/23 10:33 Height 5 ft 10 in Weight 112.491 kg BMI 35.6 BP 130/70 Blood Pressure Location Lt brachial Position Sitting Pulse 66 Pulse Source Pulse Oximeter Temp 97.6 F Temp Source Temporal Artery Scan Pulse Oximetry (%) 97 Oxygen Delivery Method Room Air Intake Visit Reasons: EP, Swelling to both legs/feet Intake Note: pt is here today for swelling in both leg/feet started monday Patient Tobacco Use Status: Never used Tobacco Allergies No Known Allergies Allergy (Unknown, Verified 05/12/23 10:48) Do you need a note to return to daycare/school/sports/work: No HPI HPI Comments History of Present Illness Details This is a 57-year-old male presenting to the clinic for sick visit, and medication refill, patient reporting he is having significant lower extremity edema left worse than right, he reports that he has to be on a water pill howev er he ran out a while ago and has not been taking as prescribed. Reports some left calf pain. The symptoms have been worsening for the past few weeks. Denies chest pain, shortness of breath, numbness, tingling, fevers, chills, blunt trauma. Patient not on blood thinner On physical exam there is 3+ nonpitting edema to the left lower extremity from the knee down and 2+ nonpitting edema to the right lower extremity, palpable pulses 2+ dorsalis pedis, anterior tibialis and popliteal pulses. Normal sensation distally. Ambulating steady gait. History and physical exam concerning for edema likely secondary to 3rd spacing possible CHF however no signs of overt fluid overload at this time. Also concerning for DVT. Unlikely arterial occlusion. I do not suspect acute CHF, ACS, PE at this time. Plan at this time will refill patient's Lasix and obtain a venous duplex of bilateral lower extremities. Will call him with results. Educated patient on diagnosis and treatment plan, answered all question, patient verbalizes understanding. At this time patient will be discharged home, advised to return with new or worsening symptoms. Educated on worrisome signs and symptoms and when to return. At this time I feel comfortable discharge home. PENDING SALE TO [facility] Medical History (Updated 11/14/22 @ 18:04 by Domenico Gaspar [facility]) Gynecomastia Insomnia VIC (obstructive sleep apnea) Alcoholic cardiomyopathy Hypertension Hyperlipidemia Surgical History No pertinent past surgical history Family History Mother No problems noted. Social History Household Members Other:: Lives with father Housing: House Alcohol intake: current Alcohol intake frequency: does not drink Patient Tobacco Use Status: Never used Tobacco e-Cigarette/Vaping Use: Never Used Current occupational status: unemployed Cognitive needs: No Hearing needs: No Vision needs: No Review of Systems Const Details: Constitutional : No Weight loss, No Fever, No Chills, No Fatigue, No Malaise ENT/Mouth : No sore throat, No Rhinorrhea Eyes: No Eye Pain, No Swelling, No Redness Cardiovascular : No Chest Pain, No SOB, No Dyspnea on Exertion, No Orthopnea, + Edema, No Palpitations Respiratory : No Cough, No Sputum, No Wheezing Gastrointestinal : No Nausea, No Vomiting, No Diarrhea, No Constipation, No abdominal Pain, No Hematochezia, No Melena Genitourinary : No Dysuria, No Urinary Frequency, No Hematuria, Musculoskeletal : No joint pain, No Myalgias, No Joint Swelling Skin : No Skin Lesions, No rash Neuro : No Weakness, No Numbness, No Dizziness, No Headache Psych : No Anxiety/Panic, No Depression All other systems reviewed and are negative All systems reviewed & are unremarkable except as noted in HPI and below Physical Exam Vital Signs: Last Vital Signs Temp 97.6 F 05/12/23 10:33 Pulse 66 05/12/23 10:33 BP 130/70 05/12/23 10:33 Pulse Ox 97 05/12/23 10:33 Oxygen Delivery Method Room Air 05/12/23 10:33 BMI result Body Mass Index 35.6 vss Appearance: Alert.? Oriented X3.? No acute distress.? Head: Normocephalic, atraumatic, no step-offs or deformities Eyes: Pupils equal, round and reactive to light.? ENT: Pharynx normal.? Neck: Normal inspection.? Neck supple.? CVS: Normal heart rate and rhythm.? Pulses normal.? Respiratory: No respiratory distress.? Breath sounds normal.? Abdomen: Soft and nontender.? Skin: Skin warm and dry.? Normal skin color.? Normal skin turgor.? Extremities: 3+ nonpitting edema to the left lower extremity from the knee down and 2+ nonpitting edema to the right lower extremity, palpable pulses 2+ dorsalis pedis, anterior tibialis and popliteal pulses. Normal sensation distally. Ambulating steady gait. 5/5 strength to bilateral upper and lower extremities positive Leandro on the left. Back: No midline tenderness, no C-spine tenderness, full range of motion, no CVA tenderness bilaterally Neuro: Oriented X 3.? No motor deficit.? No sensory deficit. CN 2-12 intact Assessment & Plan Assessment & Plan (1) Lower extremity edema: Code(s): R60.0 - Localized edema Plan Take your medications as prescribed. If you were prescribed antibiotics today, it is important that you take your medication to their entirety, do not skip any doses, do not finish them early. Follow-up with your primary care provider this week. Return to the emergency department with new or worsening symptoms. Such as fevers, chills, chest pain, shortness of breath, nausea, vomiting, dizziness, headache, vision changes, lethargy In case of emergency call 911 Orders: Orders US venous duplex LE BI Today R60.0 - Localized edema Complete Blood Count Auto Diff Today R60.0 - Localized edema Basic Metabolic Panel Today R60.0 - Localized edema B Type Natriuretic Peptide Today R60.0 - Localized edema Prothrombin Time INR Today R60.0 - Localized edema Medications: New furosemide 20 mg PO DAILY 30 tabs 1RF Coding Level of Care Code Est Pt Level 3 (37904) Diagnoses Lower extremity edema R60.0
== END 2023-05-12 11:35 | disposition home or self-care (01) ==
PROVIDERS: PCP Nurse Practitioner Family; Visit Provider Physician Assistant
DX: R60.0 Localized edema (principal)
CPT/HCPCS: 99213

== ENCOUNTER 2023-05-12 11:27 | Outpatient (REF) | payer OTHER, SELFPAY ==
--- NOTE | ~2023-05-12 | US_ITS ---
EXAMINATION: US VENOUS ULTRASOUND WITH DOPPLER LOWER EXTREMITY, BILATERAL CLINICAL INFORMATION: Edema COMPARISON: None available. TECHNIQUE: Ultrasound of the deep veins is performed from the hip to the calf with compression sonography and color and pulse Doppler assessment. Spectral analysis with color-flow imaging is performed. FINDINGS: RIGHT: There is normal venous compression and respiratory variation and augmented flow. The visualized common femoral vein, superficial femoral vein, profunda femoral vein, popliteal vein, and the trifurcation region shows no evidence of deep venous thrombosis. There is no significant popliteal fossa cyst. There are included lymph nodes with normal thin cortex. LEFT: There is normal venous compression and respiratory variation and augmented flow. The visualized common femoral vein, superficial femoral vein, profunda femoral vein, popliteal vein, and the trifurcation region shows no evidence of deep venous thrombosis. There is no significant popliteal fossa cyst. Included inguinal lymph nodes normal thin cortex. If the patient's symptoms persist, followup ultrasound in 5 days 7 days might be of value to exclude proximal propagation from a non-visualized calf vein. US/US venous duplex LE BI IMPRESSION: No DVT demonstrated in the bilateral lower extremities.
== END 2023-05-12 11:28 | disposition home or self-care (01) ==
LOC: HO.US 11:27
PROVIDERS: PCP Nurse Practitioner Family; Visit Provider Physician Assistant
DX: R60.0 Localized edema (principal)
CPT/HCPCS: 93970

== ENCOUNTER 2024-01-22 06:41 | Outpatient (REF) | payer OTHER, SELFPAY ==
[2024-01-22 10:32] LABS: MANUAL DIFF FLAG NO
[2024-01-22 10:40] LABS: Basophils Percent Auto 0.4 % (0-2); Eosinophils Absolute Auto 0.3 X10*3/uL (0.0-0.4); Eosinophils Percent Auto 2.7 % (0-4); Hematocrit 40.4 % (42.0-52.0); Imm Gran Abs Auto 0.03 X10*3/uL (0.00-0.03); Imm Gran Pct Auto 0.3 % (0.0-0.4); Lymphocytes Absolute Auto 3.3 X10*3/uL (1.2-4.9); Lymphocytes Percent Auto 33.6 % (20-40); Mean Corpuscular HGB Conc 34.7 g/dl (31.0-36.0); Mean Corpuscular Hemoglobin 33.5 pg (27.0-33.0); Mean Corpuscular Volume 96.7 fL (80.0-98.0); Mean Platelet Volume 10.3 fL (9.4-12.4); Monocytes Absolute Auto 0.6 X10*3/uL (0.1-1.2); Neutrophils Absolute Auto 5.6 x10*3/uL (2.0-8.3); Red Blood Count 4.18 X10*6/uL (4.60-5.80); Red Cell Distribution Width 12.4 % (11.0-16.0); White Blood Count 9.8 X10*3/uL (4.8-10.8)
[2024-01-22 10:58] LABS: Platelet Count 142 X10*3/uL (160-400)
[2024-01-22 11:22] LABS: Alanine Aminotransferase 32 U/L (0-40); Alkaline Phosphatase 82 U/L (39-117); Anion Gap 11 (12-20); Aspartate Amino Transferase 40 U/L (5-37); Bilirubin Total 0.8 mg/dL (0.0-1.0); Blood Urea Nitrogen 15 mg/dL (9-16); Calcium 9.3 mg/dL (8.4-10.2); Carbon Dioxide 27 mmol/L (22-29); Chloride 104 mmol/L (96-108); Cholesterol 165 mg/dL (<200); Estimated Glomerular Filt Rate > 60; Glucose Fasting 101 mg/dL (60-99); HDL Cholesterol 53 mg/dL (>40); LDL Cholesterol Calculated 98 mg/dL (<100); Potassium 3.3 mmol/L (3.3-5.1); Sodium 139 mmol/L (135-145); TSH reflex Free T4 4.02 uIU/mL (0.32-4.0); Total Protein 7.1 g/dL (6.5-8.0); Triglycerides 73 mg/dL (<150)
[2024-01-22 11:27] LABS: Prostate Specific Antigen Scr 2.94 ng/mL (<0.05-4.0)
[2024-01-22 12:16] LABS: Free T4 (Free Thyroxine) 1.06 ng/dL (0.71-1.85)
[2024-01-22 13:28] LABS: Appearance Urine Clear; Color Urine Yellow; Glucose Urine UA Negative (Negative); Leukocyte Esterase Urine Negative (Negative); Nitrite Urine Negative (Negative); PH 5.5 (5.0-9.0); Urine Blood Negative (Negative); Urine Ketones Negative (Negative); Urine Protein Negative (Neg-Trace)
== END 2024-01-22 06:42 | disposition home or self-care (01) ==
LOC: HO.HMGCLDS 06:41
PROVIDERS: PCP Nurse Practitioner Family; Visit Provider Nurse Practitioner Family
DX: I10 Essential (primary) hypertension (principal); Z12.5 Encounter for screening for malignant neoplasm of prostate
CPT/HCPCS: 36415; 80053; 80061; 81003; 84153; 84439; 84443; 85025

== ENCOUNTER 2024-05-09 08:01 | Outpatient (AMB) | payer OTHER, SELFPAY ==
[2024-05-09 08:02] VITALS: BP 142/80; PULSE 70; O2SAT 98; BMI 35.6
--- NOTE | 2024-05-09 08:02 | MHC.PC.OV ---
Vital Signs 05/09/24 08:02 Height 5 ft 10 in Weight 248 lb BMI 35.6 BP 142/80 H Blood Pressure Location Rt brachial Position Sitting Pulse 70 Pulse Source Pulse Oximeter Pulse Oximetry (%) 98 Intake Visit Reasons: FollowUpBP Intake Note: pt is here for F/up for BP Knockdown Worker Required: No Accompanied by: Self / Same As Patient Allergies No Known Allergies Allergy (Unknown, Verified 05/09/24 08:02) Medication List - Last Reconciled 05/09/24 by YVON Bai- aspirin 81 mg PO DAILY atorvastatin 40 mg PO DAILY carvedilol 25 mg PO BID folic acid 1 mg PO DAILY furosemide 20 mg PO DAILY lisinopril 40 mg PO DAILY 90 days melatonin 5 mg PO BEDTIME PRN yfiytfnxovhl-ojptixkc-ukbitw 1 tab PO DAILY omeprazole 20 mg PO DAILY 90 days thiamine HCl (vitamin B1) 100 mg PO DAILY 90 days trazodone 100 mg PO BEDTIME PRN 30 days Tobacco use date assessed: 05/09/24 Dental Screening Dental Screen Date: 05/09/24 Did you have a dental visit in the last 12 months?: Yes Did you have a dental problem in the last 6 months where you did not have access to dental care?: No Was dental information given to patient?: Patient has dentist HPI FollowUpBP HPI Details History of Present Illness The patient is a 58-year-old male presenting with elevated blood pressure and insomnia. He has a history of elevated blood pressure, currently managed with Carvedilol 25 mg twice daily, Furosemide 20 mg daily, and Lisinopril, which i will increase today from 30 mg to 40 mg. The patient reports adherence to his medication regimen. There is no recent history of chest pain, shortness of breath, headache, or dizziness. He denies alcohol consumption and reports that smoking is not part of his lifestyle. The patient also experiences insomnia, noting difficulty sleeping, even with the use of melatonin and Trazodone. He has not slept well in the past three nights. The dosage of Trazodone will be increased to 200 mg nightly. So patient was referred previously to cardiology twice, once in 2020, once in 2022 he was not seen by cardiology for some Reason so I will re-refer him today Social History - Denies current tobacco use. - Denies current alcohol use. - Adheres to medication regimen. - No noted referrals to specialists in recent years despite appropriate recommendations. Review of Systems - Neurological: Denies headache, dizziness. - Respiratory: Denies shortness of breath. - Cardiovascular: Denies chest pain. - General: Reports insomnia. Physical Exam - Cardiovascular- 1+ pitting edema in lower extremities. - Cardiovascular- S1 and S2 lungs clear morbidly obese A+Ox3 Results - Diagnostic Test: Echocardiogram from 2022 - Diagnostic Test: EKG demonstrates bundle branch block. Plan - Elevated Blood Pressure: Continue current management with Carvedilol and Furosemide. Increase Lisinopril to 40 mg daily. Continue monitoring blood pressure and keep lab assessments up to date to follow patterns over time. - Hypotension: Observe as per current management plan. Regular blood pressure measurements to adjust therapy as needed. - Insomnia: Increase Trazodone to 200 mg nightly. Assess effectiveness over the next follow-up period. - 1+ Pitting Edema: Monitor edema in lower extremities. Maintain current management and adjust only if symptoms worsen. - Bundle Branch Block: Referral to cardiology reinforced due to the presence of a bundle branch block on the EKG. Follow through with the cardiology appointment for further evaluation and management. Patient was informed and verbally consented to the use of an ambient scribe for clinic note documentation during this visit. Discussion Notes During the visit, I discussed with the patient the plan to increase Lisinopril to help manage the elevated blood pressure. I confirmed the importance of medication adherence and keeping follow-up appointments, particularly with cardiology. The benefits and potential side effects of the increased Lisinopril dosage were reviewed, emphasizing there is minimal risk with the current adjustment. We discussed sleep difficulties, the patient's use of Trazodone, and agreed to increase the dose to 200 mg as a therapeutic trial. The patient was updated on his bundle branch block status and informed about the necessary cardiology referral to ensure comprehensive cardiovascular care. I ensured the patient is aware of his next steps regarding follow-up labs and cardiology appointments and discussed potential lifestyle modifications, including sleep hygiene practices to improve insomnia. Patient Instructions - Increase Lisinopril to 40 mg daily as prescribed. - Increase Trazodone to 200 mg nightly for management of insomnia. - Follow up with cardiology as planned and ensure attendance at referral appointment. - Monitor blood pressure regularly and maintain medication adherence. - Schedule lab tests at least two weeks after medication adjustment. - Receive vaccinations, including pneumonia and flu, as discussed. - Schedule a follow-up appointment in six months. - Practice improved sleep hygiene strategies and report any new symptoms. [facility] Medical History Gynecomastia Insomnia VIC (obstructive sleep apnea) Alcoholic cardiomyopathy Hypertension Hyperlipidemia Surgical History No pertinent past surgical history Family History Mother No problems noted. Social History Household Members Other:: Lives with father Housing: House Alcohol intake: current Alcohol intake frequency: does not drink Patient Tobacco Use Status: Never used Tobacco e-Cigarette/Vaping Use: Never Used Current occupational status: unemployed Cognitive needs: No Hearing needs: No Vision needs: No Questionnaire PHQ-9 Over the last 2 weeks, how often have you been bothered by any of the following problems? 1. Little interest or pleasure in doing things: not at all 2. Feeling down, depressed, or hopeless: not at all 3. Trouble falling or staying asleep, or sleeping too much: not at all 4. Feeling tired or having little energy: several days 5. Poor appetite or overeating: not at all 6. Feeling bad about yourself - or that you are a failure or have let yourself or your family down: not at all 7. Trouble concentrating on things, such as reading the newspaper or watching television: not at all 8. Moving or speaking so slowly that other people could have noticed. Or the opposite - being so fidgety or restless that you have been moving around a lot more than usual: not at all 9. Thoughts that you would be better off or of hurting yourself in some way: not at all Total score: 1 Depression Screening Interpretation: Negative Depression Screening Done: Yes 64120 - PHQ-9 Billing: Yes Source: Developed by Drs. Hayder Sanchez, Sandy Willams, Kyaw Ruby and colleagues, with an educational palma from [employer]. Thrive Questionnaire Date Thrive assessed: 05/09/24 I am a: Patient What is your living situation today?: I choose not to answer this question Within the past 12 months, did the food you bought not last and you didn't have the money to get more?: I choose not to answer this question Within the past 12 months, did you worry whether your food would run out before you got money to buy more?: I choose not to answer this question Do you have trouble paying for medicines?: I choose not to answer this question Do you have trouble getting transportation to medical appointments?: I choose not to answer this question Do you have trouble paying your heating and electricity bill?: I choose not to answer this question Do you have trouble taking care of your child, family member or friend?: I choose not to answer this question Do you have trouble with day-to-day activities such as bathing, preparing meals, shopping, managing finances, etc.?: I choose not to answer this question Are you currently unemployed and looking for a job?: I choose not to answer this question Are you interested in more education?: I choose not to answer this question Please select the resources that you would like help with: None Currently or been in a relationship where the following occur: No concerns reported THRIVE Score: 0 AUDIT C Alcohol Use Questionnaire (AUDIT-C) 1. How often do you have a drink containing alcohol?: Never 3. How often do you have six or more drinks on one occasion?: Never Total Score: 0 Score Reviewed/Action Taken: Yes JORGE-7 AMB Questionnaire JORGE-7 Date JORGE - 7 assessed: 05/09/24 Feeling nervous, anxious, or on edge: 0 = Not at all Not being able to stop or control worryin = Not at all Worrying too much about different things: 0 = Not at all Trouble relaxin = Not at all Being so restless that it is hard to sit still: 0 = Not at all Becoming easily annoyed or irritable: 0 = Not at all Feeling afraid as if something awful might happen: 0 = Not at all Total JORGE-7 score (0-4 normal; 5-9 mild; 10-14 moderate; 15-21 severe): 0 Source: Developed by Drs. Hayder Sanchez, Sandy Willams, Kyaw Ruby and colleagues, with an educational palma from [employer]. JORGE-7 Assessment Billing JORGE-7 Assessment Tool: JORGE-7 Assessment 52113 Physical exam (Primary Care) Vital Signs: Last Vital Signs Pulse 70 05/09/24 08:02 BP 142/80 H 05/09/24 08:02 Pulse Ox 98 05/09/24 08:02 BMI result Body Mass Index 35.6 Tobacco/Smoking Status: Tobacco use Status Tobacco use date assessed 05/09/24 05/09/24 08:03 Patient Tobacco Use Status Never used Tobacco 05/09/24 08:02 e-Cigarette/Vaping Use Never Used 05/09/24 08:02 PHQ-9: PHQ-9 Score PHQ-9: Total score 1 05/09/24 08:29 Depression Screening Interpretation: Negative Thrive Assessment: Date of Thrive Assessment Date Thrive assessed 05/09/24 05/09/24 08:03 Currently or been in a relationship where the following occur: No concerns reported Office Procedures EKG 11011-Wwzihfhslqvkaagmc, Complete Flu Questionnaire Does the patient have a severe egg allergy?: No Does the patient have severe life threatening allergies?: No Does the patient have a fever or illness today?: No Has the patient ever had Guillain-Kelly Syndrome?: No Has the patient ever had any past reaction to a flu shot?: No Immunizations Fluarix Triv [id number] (PF) 45 mcg (15 mcg x 3)/0.5 mL IM syringe Performing Provider: PILI Bai Performing Location: [facility] [place] Adult [facility] Administered by: Gadiel Whitman CMA on 05/09/24 08:52 Dose Route Admin Location Dispensed Lot Number Expiration Date [facility] Talent Development Coordinator 0.5 mL IM Right Deltoid 0.5 mL [id number] 12/02/24 [id number] disco volante VIS Given Date VIS Provided VIS Publication Date 05/09/24 Single Vaccine 21 Eligibility Eligibility Date Funding Source Not [facility] Eligible 05/09/24 Private pneumoc 20-saleem conj-dip cr(PF) 0.5 mL IM syringe Performing Provider: PILI Bai Performing Location: [facility] [place] Adult [facility] Administered by: Gadiel Whitman CMA on 05/09/24 08:52 Dose Route Admin Location Dispensed Lot Number Expiration Date [facility] Talent Development Coordinator 0.5 mL IM Left Deltoid 0.5 mL [id number] 09/22/25 [id number] WYETH/PFIZER VIS Given Date VIS Provided VIS Publication Date 05/09/24 Single Vaccine 21 Eligibility Eligibility Date Funding Source Not [facility] Eligible 05/09/24 Private Coding Level of Care Code Est Pt Level 3 (82895) Diagnoses Hypertension I10 Alcoholic cardiomyopathy I42.6 Cardiomyopathy, unspecified type I42.9 Cardiomyopathy type: unspecified CPT Codes EKG - CPT: 37579-Zkjbdzpxiggzfonba, Complete ([id number]) Additional Codes JORGE-7 Assessment Billing - JORGE-7 Assessment Tool: JORGE-7 Assessment 57440 ([id number]) PHQ-9 - 86964 - PHQ-9 Billing: Yes ([id number]) Assessment & Plan Assessment & Plan (1) Hypertension: Code(s): I10 - Essential (primary) hypertension Category: Medical (2) Alcoholic cardiomyopathy: Code(s): I42.6 - Alcoholic cardiomyopathy Category: Medical (3) Cardiomyopathy: Code(s): I42.9 - Cardiomyopathy, unspecified Category: Medical Qualifiers: Cardiomyopathy type: unspecified Qualified Code(s): I42.9 - Cardiomyopathy, unspecified (4) Alcoholic cardiomyopathy: Code(s): I42.6 - Alcoholic cardiomyopathy Category: Medical (5) Cardiomyopathy: Code(s): I42.9 - Cardiomyopathy, unspecified Category: Medical Qualifiers: Cardiomyopathy type: unspecified Qualified Code(s): I42.9 - Cardiomyopathy, unspecified Plan: . Plan . Orders: Orders UA CC w/rflx Micro + Cult Today I10 - Essential (primary) hypertension Pneumococcal 20 Immunization Today Z23 - Encounter for immunization Complete Blood Count Auto Diff Today I10 - Essential (primary) hypertension Comprehensive [place]. Panel Fast Today I10 - Essential (primary) hypertension TSH reflex Free T4 Today I10 - Essential (primary) hypertension Lipid Panel Today I10 - Essential (primary) hypertension AMB EKG-In Office Today I10 - Essential (primary) hypertension, I42.6 - Alcoholic cardiomyopathy, I42.9 - Cardiomyopathy, unspecified Influenza 4512-1279 Immunization Today Z23 - Encounter for immunization Referrals Cardiology Referral I42.6 - Alcoholic cardiomyopathy, I42.9 - Cardiomyopathy, unspecified Medications: Changed From trazodone 100 mg PO BEDTIME 30 days PRN 30 tabs 2RF for insomnia To trazodone 200 mg (2 x 100 mg) PO BEDTIME 30 days PRN 30 tabs 2RF for insomnia From lisinopril 30 mg PO DAILY 90 days 90 tabs 1RF To lisinopril 40 mg PO DAILY 90 days 90 tabs 1RF
== END 2024-05-09 09:48 | disposition home or self-care (01) ==
PROVIDERS: PCP Nurse Practitioner Family; Visit Provider Nurse Practitioner Family
DX: I10 Essential (primary) hypertension (principal); I42.6 Alcoholic cardiomyopathy; I42.9 Cardiomyopathy, unspecified; Z23 Encounter for immunization

== ENCOUNTER → 2024-05-09 08:01 | Outpatient (BNVA) | payer OTHER, SELFPAY | PROVIDERS: PCP Nurse Practitioner Family; Visit Provider Nurse Practitioner Family | DX: Z23 Encounter for immunization (principal); I10 Essential (primary) hypertension; I42.6 Alcoholic cardiomyopathy; I42.9 Cardiomyopathy, unspecified | CPT/HCPCS: 90471; 90472; 90656; 90677; 93005; 96127; 99212 ==

== ENCOUNTER 2025-04-16 14:53 | Outpatient (AMB) | payer OTHER, SELFPAY ==
--- NOTE | 2025-04-16 14:57 | MHC.PC.OV ---
Vital Signs 04/16/25 15:02 Weight 246 lb BP 140/78 H Blood Pressure Location Lt brachial Position Sitting Respiration 16 Pulse 60 Pulse Source Pulse Oximeter Pulse Oximetry (%) 95 Oxygen Delivery Method Room Air Intake Visit Reasons: PE Assistant Art Director Required: No Accompanied by: Self / Same As Patient Allergies No Known Allergies Allergy (Unknown, Verified 04/16/25 15:07) Medication List - Last Reconciled 04/16/25 by JEANINE BaiP- aspirin 81 mg PO DAILY atorvastatin 40 mg PO DAILY carvedilol 25 mg PO BID folic acid 1 mg PO DAILY furosemide 40 mg PO DAILY 30 days lisinopril 40 mg PO DAILY 90 days [id number] fum-folic ac 19 mg iron- 400 mcg (Thera-M) 1 tab PO DAILY omeprazole 20 mg PO DAILY 90 days thiamine HCl (vitamin B1) 100 mg PO DAILY 90 days Tobacco use date assessed: 04/16/25 Dental Screening Dental Screen Date: 04/16/25 HPI PE HPI Details History of Present Illness The patient is a 59-year-old male presenting for a physical exam. The patient has a history of alcoholic cardiomyopathy and reports that he has stopped drinking alcohol entirely. He was previously seeing a animal caretaker and was supposed to undergo a cardiac catheterization and possibly a CT scan, but these were not completed. His last echocardiogram was in 2022. Has seen GI in the past, but needed to be cleared by cardio before any colon screen can be performed The patient's father, who is 89 years old, was recently diagnosed with colon cancer. The patient's blood pressure readings from home are reported to be fairly stable, with some systolic measurements in the 140s. Insomnia: melatonin and high dose trazodone did not work. Health Maintenance - The patient requires a colon cancer screening. - The patient's 89-year-old father was recently diagnosed with colon cancer. Social History - Substance Use: The patient reports a history of alcohol use but has stopped drinking completely. Review of Systems - Cardiovascular: Denies chest pain. - Respiratory: Denies shortness of breath. - Gastrointestinal: Denies abdominal pain, blood in stool, constipation, or diarrhea. - Genitourinary: Denies any urinary issues. - Psychiatric: Denies suicidal or homicidal ideation. Physical Exam General: Cooperative, healthy appearing, comfortable, no acute distress and well developed Orientation: Patient oriented x3 Limitations: No limitations Head: Normal to inspection Ears: Hearing grossly normal bilaterally Nose: Normal external nose present Face and sinus: Normal facial exam Eyes: Appearance normal, both eyes and all related structures Neck: Normal visual inspection and Yes full ROM Respiratory: Normal respiratory effort and able to speak in complete sentences. Clear to auscultation bilaterally Cardiovascular: Regular rate and rhythm. Normal S1 and S2 GI: Normal to inspection. Soft to palpation and nontender : testicles without masses/lesions and no hernias appreciated Skin: No rashes or lesions noted Neuro: Patient oriented x3 Extremities: Obese. Plus 1 pitting edema in lower extremities. Results - Echocardiogram: Last performed in 2022. - Home Blood Pressure Monitoring: Readings are reported as fairly stable, with some systolic values in the 140s. Plan 1. Alcoholic Cardiomyopathy A referral to cardiology will be made for follow-up and to obtain clearance for a colonoscopy. A CT angiogram and a follow-up echocardiogram will be ordered. An EKG will also be performed today. 2. Essential Hypertension The patient will continue to monitor his blood pressure at home and send the values for review. increased furosemide from 20mg to 40mg daily, HIGHLY ENCOURGAED FOR HIM TO GET HIS LABS DRAWN APPROX 2 WEEKS AFTER STARTING THIS NEW DOSE 3. Bilateral Lower Extremity Edema The patient's furosemide dosage will be increased from 20 mg to 40 mg daily to manage the bilateral lower extremity edema. 4. Colon Cancer Screening The patient needs a colonoscopy, and a cardiology follow-up is required to obtain clearance for the procedure, especially given his father's recent diagnosis of colon cancer. 5. General Health Maintenance Fasting labs will be ordered for the patient. 6. insomnia High dose trazodone did not work, nor did melatonin. will try 5mg ambien, he knows he cannot drink or share med Discussion Notes I discussed with the patient the need to follow up with cardiology for cardiac clearance before he can proceed with the colonoscopy he needs. I explained that I will order a CT angio, a follow-up echo, and an EKG today to facilitate this clearance. We reviewed the importance of this screening, especially given his father was recently diagnosed with colon cancer. I also addressed the +1 pitting edema in his legs by increasing his furosemide dose from 20 mg to 40 mg daily. I instructed him to continue monitoring his blood pressure at home, get fasting labs done, and I informed him we would get an EKG today. Patient Instructions - We are referring you back to your 3d specialist (animal caretaker). It is necessary to get their approval before you can have your colon cancer screening (colonoscopy). - I am ordering a CT scan of your heart arteries (CT angio) and a follow-up heart ultrasound (echo). - We will perform a heart tracing (EKG) in the office today. - Your dose for the water pill (furosemide) is being increased from 20 mg once a day to 40 mg once a day to help with the swelling in your legs. - Continue to check your blood pressure at home and please send us your readings. - You will need to get blood work done. Remember to fast (do not eat or drink anything but water) before your lab appointment. - You have stopped drinking alcohol, which is great. Please continue to avoid alcohol. [facility] Medical History Gynecomastia Insomnia VIC (obstructive sleep apnea) Alcoholic cardiomyopathy Hypertension Hyperlipidemia Surgical History No pertinent past surgical history Family History Mother No problems noted. Social History Household Members Other:: Lives with father Housing: House Alcohol intake: current Alcohol intake frequency: does not drink Patient Tobacco Use Status: Never used Tobacco e-Cigarette/Vaping Use: Never Used Current occupational status: unemployed Cognitive needs: No Hearing needs: No Vision needs: No Questionnaire Thrive Questionnaire Date Thrive assessed: 05/09/24 I am a: Patient What is your living situation today?: I choose not to answer this question Within the past 12 months, did the food you bought not last and you didn't have the money to get more?: I choose not to answer this question Within the past 12 months, did you worry whether your food would run out before you got money to buy more?: I choose not to answer this question Do you have trouble paying for medicines?: I choose not to answer this question Do you have trouble getting transportation to medical appointments?: I choose not to answer this question Do you have trouble paying your heating and electricity bill?: I choose not to answer this question Do you have trouble taking care of your child, family member or friend?: I choose not to answer this question Do you have trouble with day-to-day activities such as bathing, preparing meals, shopping, managing finances, etc.?: I choose not to answer this question Are you currently unemployed and looking for a job?: I choose not to answer this question Are you interested in more education?: I choose not to answer this question Please select the resources that you would like help with: None Currently or been in a relationship where the following occur: No concerns reported THRIVE Score: 0 JORGE-7 AMB Questionnaire JORGE-7 Date JORGE - 7 assessed: 05/09/24 Source: Developed by Drs. Hayder Sanchez, Sandy Willams, Kyaw Ruby and colleagues, with an educational palma from [employer]. Physical exam (Primary Care) Vital Signs: Last Vital Signs Pulse 60 04/16/25 15:02 Resp 16 04/16/25 15:02 BP 140/78 H 04/16/25 15:02 Pulse Ox 95 04/16/25 15:02 Oxygen Delivery Method Room Air 04/16/25 15:02 Tobacco/Smoking Status: Tobacco use Status Tobacco use date assessed 04/16/25 04/16/25 15:00 Patient Tobacco Use Status Never used Tobacco 04/16/25 15:00 e-Cigarette/Vaping Use Never Used 04/16/25 15:00 Thrive Assessment: Date of Thrive Assessment Date Thrive assessed 05/09/24 04/16/25 15:00 Currently or been in a relationship where the following occur: No concerns reported Coding Level of Care Code Est Pt Level 3 (27870) Est Pt Prev Care 40-64y(95048) Diagnoses Alcoholic cardiomyopathy I42.6 Alcohol abuse F10.10 LBBB (left bundle branch block) I44.7 Cardiomyopathy, unspecified type I42.9 Cardiomyopathy type: unspecified Encounter for routine adult physical exam with abnormal findings Z00.01 Vitamin D deficiency E55.9 Screening PSA (prostate specific antigen) Z12.5 Assessment & Plan Assessment & Plan (1) Alcoholic cardiomyopathy: Code(s): I42.6 - Alcoholic cardiomyopathy Category: Medical (2) Alcohol abuse: Code(s): F10.10 - Alcohol abuse, uncomplicated Category: Social Hx (3) LBBB (left bundle branch block): Code(s): I44.7 - Left bundle-branch block, unspecified Category: Medical (4) LBBB (left bundle branch block): Code(s): I44.7 - Left bundle-branch block, unspecified Category: Medical (5) Cardiomyopathy: Code(s): I42.9 - Cardiomyopathy, unspecified Category: Medical Qualifiers: Cardiomyopathy type: unspecified Qualified Code(s): I42.9 - Cardiomyopathy, unspecified (6) Encounter for routine adult physical exam with abnormal findings: Code(s): Z00. - Encounter for general adult medical examination with abnormal findings Category: Medical (7) Vitamin D deficiency: Code(s): E55.9 - Vitamin D deficiency, unspecified Category: Medical (8) Screening PSA (prostate specific antigen): Code(s): Z12.5 - Encounter for screening for malignant neoplasm of prostate Category: Medical Plan . Orders: Orders CA echo transthoracic complete Today I42.9 - Cardiomyopathy, unspecified, I44.7 - Left bundle-branch block, unspecified Complete Blood Count Auto Diff Today Z00.01 - Encounter for general adult medical examination with abnormal findings Lipid Panel Today Z00.01 - Encounter for general adult medical examination with abnormal findings Vitamin D 25-OH Total Today E55.9 - Vitamin D deficiency, unspecified CT Cardiac Coronary Angio Today F10.10 - Alcohol abuse, uncomplicated, I42.6 - Alcoholic cardiomyopathy, I44.7 - Left bundle-branch block, unspecified Comprehensive [place]. Panel Fast Today Z00.01 - Encounter for general adult medical examination with abnormal findings TSH reflex Free T4 Today Z00.01 - Encounter for general adult medical examination with abnormal findings UA CC w/rflx Micro + Cult Today Z00.01 - Encounter for general adult medical examination with abnormal findings Prostate Specific Antigen Scr Today Z12.5 - Encounter for screening for malignant neoplasm of prostate AMB EKG-In Office Today I42.9 - Cardiomyopathy, unspecified, I44.7 - Left bundle-branch block, unspecified Medications: New zolpidem ER (Ambien CR) 6.25 mg PO BEDTIME PRN 30 tabs 0RF insomnia 30 days Changed From furosemide 20 mg PO DAILY 90 tabs 1RF To furosemide 40 mg PO DAILY 30 tabs 1RF 30 days Discontinued melatonin Discontinued Reason: Doctor's Order 5 mg PO BEDTIME PRN 90 caps 1RF for insomnia trazodone Discontinued Reason: Doctor's Order 200 mg (2 x 100 mg) PO BEDTIME 30 days PRN 60 tabs 2RF for insomnia
[2025-04-16 15:02] VITALS: BP 140/78; PULSE 60; RESP 16; O2SAT 95
== END 2025-04-16 16:06 | disposition home or self-care (01) ==
LOC: HO.HMCC 14:53
PROVIDERS: PCP Nurse Practitioner Family; Visit Provider Nurse Practitioner Family
DX: Z00.01 Encounter for general adult medical examination with abnormal findings (principal); I42.6 Alcoholic cardiomyopathy; I42.9 Cardiomyopathy, unspecified; I44.7 Left bundle-branch block, unspecified; F10.10 Alcohol abuse, uncomplicated; E55.9 Vitamin D deficiency, unspecified; Z12.5 Encounter for screening for malignant neoplasm of prostate

== ENCOUNTER → 2025-04-16 14:53 | Outpatient (BNVA) | payer OTHER, SELFPAY | PROVIDERS: PCP Nurse Practitioner Family; Visit Provider Nurse Practitioner Family | DX: Z00.01 Encounter for general adult medical examination with abnormal findings (principal); I42.6 Alcoholic cardiomyopathy; I10 Essential (primary) hypertension; R60.0 Localized edema; G47.00 Insomnia, unspecified; F10.11 Alcohol abuse, in remission; I44.7 Left bundle-branch block, unspecified; E55.9 Vitamin D deficiency, unspecified | CPT/HCPCS: 93005; 99212; 99396 ==

== ENCOUNTER 2025-05-03 09:17 | Outpatient (REF) | payer OTHER, SELFPAY ==
[2025-05-03 11:15] LABS: MANUAL DIFF FLAG NO
[2025-05-03 11:20] LABS: Hematocrit 40.8 % (42.0-52.0); Hemoglobin 13.7 g/dl (14.0-18.0); Imm Gran Abs Auto 0.03 X10*3/uL (0.00-0.03); Imm Gran Pct Auto 0.4 % (0.0-0.4); Lymphocytes Absolute Auto 2.4 X10*3/uL (1.2-4.9); Mean Corpuscular HGB Conc 33.6 g/dl (31.0-36.0); Mean Corpuscular Hemoglobin 32.4 pg (27.0-33.0); Mean Corpuscular Volume 96.5 fL (80.0-98.0); NRBC Abs Auto 0.000 X10*3/uL (0.0-0.012); NRBC Pct Auto 0.0 /100WBC (0.0-0.2); Platelet Count 181 X10*3/uL (160-400); Red Blood Count 4.23 X10*6/uL (4.60-5.80); White Blood Count 7.5 X10*3/uL (4.8-10.8)
[2025-05-03 11:51] LABS: Alanine Aminotransferase 11 U/L (0-40); Albumin Level 4.0 g/dL (3.5-5.0); Alkaline Phosphatase 72 U/L (39-117); Anion Gap 10 (12-20); Aspartate Amino Transferase 30 U/L (5-37); Blood Urea Nitrogen 27 mg/dL (9-16); Calcium 9.8 mg/dL (8.4-10.2); Carbon Dioxide 28 mmol/L (22-29); Chloride 110 mmol/L (96-108); Cholesterol 127 mg/dL (<200); Estimated Glomerular Filt Rate > 60; HDL Cholesterol 36 mg/dL (>40); Potassium 4.4 mmol/L (3.3-5.1); Sodium 144 mmol/L (135-145); Total Protein 7.0 g/dL (6.5-8.0); Triglycerides 57 mg/dL (<150)
== END 2025-05-03 09:18 | disposition home or self-care (01) ==
LOC: HO.HMGCLDS 09:17
PROVIDERS: PCP Nurse Practitioner Family; Visit Provider Nurse Practitioner Family
DX: Z00.00 Encounter for general adult medical examination without abnormal findings (principal); Z12.5 Encounter for screening for malignant neoplasm of prostate; E55.9 Vitamin D deficiency, unspecified
CPT/HCPCS: 36415; 80053; 80061; 82306; 84153; 84443; 85025

== ENCOUNTER → 2025-05-23 09:37 | Outpatient (REF) | payer OTHER, SELFPAY ==
--- NOTE | 2025-05-23 09:41 | CA_ITS ---
Transthoracic Echocardiogram Patient (Last, First, Middle): Matt Honeycutt J Gender: Male Date of : 1965 Age: 60 Procedure Date: 05/23/2025 Procedure Type: Transthoracic Echocardiogram Location: OP Height: 177. cm Weight: 108.86 kg BSA: 2.25 m2 Heart Rate: 57 bpm BP: 142 / 70 mmHg [employer] Attendant: DONNA Referring MD: Domenico Gaspar [facility]- Symptoms: I42.9 - Cardiomyopathy, unspecified Study Quality: Adequate w/Contrast ECG Rhythm: Bradycardia Conclusions: - Normal left ventricular cavity size. There is moderately increased left ventricular wall thickness. The left ventricular systolic function is mild to moderately decreased. The visually estimated ejection fraction is between 35-40%. - E/E prime ratio is between 8 and 15 consistent with indeterminate filling pressures. - Normal right ventricular cavity size and systolic function. Findings Procedure Information Contrast agent, definity, is being given per protocol without apparent complications. Left Ventricle Normal left ventricular cavity size. There is moderately increased left ventricular wall thickness. The left ventricular systolic function is mild to moderately decreased. The visually estimated ejection fraction is between 35-40%. There is mild global hypokinesis. Abnormal diastolic function is noted. Spectral Doppler is indicative of an impaired relaxation filling pattern. E/E prime ratio is between 8 and 15 consistent with indeterminate filling pressures. Right Ventricle Normal right ventricular cavity size and systolic function. Atria The left atrium is mildly dilated. The right atrium is likely dilated. Aortic Valve Normal aortic valve structure and function. There is no aortic valve stenosis. There is no aortic valve regurgitation. Mitral Valve The mitral valve appears normal. There is no mitral valve regurgitation. There is no mitral valve stenosis. Pulmonic Valve The pulmonic valve is normal. There is no pulmonic valve regurgitation. Tricuspid Valve Normal tricuspid valve structure. There is no tricuspid valve regurgitation. Tricuspid regurgitation envelope is inadequate for calculation of right ventricular systolic pressure. Normal right atrial pressure. Great Vessels All visible segments of the aorta are normal in size. The visualized portions of the pulmonary artery and branches are normal. Venous The inferior vena cava is normal in size and collapses greater than 50% with inspiration. Pericardium/Pleural There is no evidence of pericardial effusion. Prior Study Comparison Changes noted compared to prior study dated: 09/09/2022. EF 35 to 40% Measurements 2D Linear Measurements IVSd: 1.52 0.6-0.9/0.6-1.0 cm LVIDd: 4.87 3.9-5.3/4.2-5.9 cm LVIDd Index: 2.16 2.4-3.2/2.2-3.1 cm/m2 LVIDs: 3.18 2.0-3.6 cm LVPWd: 1.37 0.7-1.1 cm LA Diam: 4.60 2.7-3.8/3.0-4.0 cm LAIDs Index: 2.04 1.5-2.3 cm/m2 LV Mass: 365.86 67-162/88-224 g LV Mass Index: 162.60 43-95/49-115 g/m2 LVOT Diam: 2.10 3.0+(-)1.3 cm 2D Systolic Function EF 4C: 35.70 >55% EF 2C: 55.10 >55% EF BiP: 48.30 >55% Mitral Valve MV Pk E: 0.79 MV PK A: 0.66 MV Decel Time: 196.00 E/A: 1.20 E'Lateral: 11.90 E'Medial: 4.88 E/E' Med: 16.10 E/E' Lat: 6.60 PHT: 57.00 MVA PHT: 3.86 Decel [place]: 4.02 Aortic Valve AoV Pk Kevin: 1.74 AoV Mn Kevin: 1.25 AoV VTI: 0.41 AoV Pk Grad: 12.00 Aov Mn Grad: 7.00 JOSE F Cont.VTI: 2.54 LVOT LVOT Pk Kevin: 1.35 LVOT Mn Kevin: 0.95 LVOT VTI: 0.30 LVOT Pk Grad: 7.00 LVOT Mn Grad: 4.00 LVOT Diam: 2.10 LVOT Area: 3.46 Diastolic Function MV Pk E: 0.79 MV Pk A: 0.66 E/A: 1.20 E'Medial: 4.88 E/E' Med: 16.10 E' Laterial: 11.90 E/E' Lat: 6.60 Right Ventricle TAPSE (mm): 15.30 TVS' Kevin: 9.11 Tricuspid Valve RA Press: 3.00 Great Vessels Aorta Sinus of Valsalva: 3.60 2.0-3.5 cm Ao Asc: 3.50 2.1-3.4 cm Ao Arch: 3.20 Pulmonary Veins Pulm Vein S/D 1.10 Pulmonary Valve PV Pk Kevin: 1.18 Peak PV Grad: 6.00 Updated in Other Vendor System with Status of Final Walter Chu MD electronically signed on 05/25/2025 10:05:04 PM with status of Final
== END ==
LOC: HO.CARD 09:37
PROVIDERS: PCP Nurse Practitioner Family; Visit Provider Nurse Practitioner Family
DX: I42.9 Cardiomyopathy, unspecified (principal); I44.7 Left bundle-branch block, unspecified
CPT/HCPCS: 93306; Q9957

== ENCOUNTER → 2025-05-23 09:41 | Outpatient (BNV) | payer OTHER, SELFPAY | PROVIDERS: PCP Nurse Practitioner Family; Visit Provider Internal Medicine Cardiovascular Disease | DX: I51.89 Other ill-defined heart diseases (principal) | CPT/HCPCS: 93306 ==